=== PATIENT | female | born 1995 | race Caucasian/White ===

== ENCOUNTER → 2019-01-06 | Outpatient (CLI) | payer OTHER ==
[~2019-01-06] MED LIST: EPIN0.3P3 IM; ESCI5TAB3 PO; NORG1TAB74 PO; TRAZ50TA34 PO
== END ==
LOC: LAB 11:19
PROVIDERS: ATTEND Surgery
DX: D22.5 Melanocytic nevi of trunk (principal)
CPT/HCPCS: 88305

== ENCOUNTER → 2019-04-10 | Outpatient (CLI) | payer OTHER ==
[~2019-04-10] MED LIST changes: +CIPR-345 PO; -TRAZ50TA34 PO; +TRAZ50TA52 PO
== END ==
LOC: LAB 13:01
PROVIDERS: ATTEND Emergency Medicine
DX: R30.0 Dysuria (principal)
CPT/HCPCS: 81001

== ENCOUNTER → 2019-04-18 | Outpatient (CLI) | payer OTHER ==
[~2019-04-18] MED LIST changes: +ERYT1OIN3 OS; +NITR-105 PO
== END ==
LOC: LAB 09:22
PROVIDERS: ATTEND Emergency Medicine
DX: R30.0 Dysuria (principal)
CPT/HCPCS: 87088

== ENCOUNTER → 2019-04-21 | Outpatient (CLI) | payer OTHER | LOC: LAB 08:36 | PROVIDERS: ATTEND Nurse Practitioner Primary Care | DX: N39.0 Urinary tract infection, site not specified (principal); R30.0 Dysuria; B96.89 Other specified bacterial agents as the cause of diseases classified elsewhere | CPT/HCPCS: 81001; 87088 ==

== ENCOUNTER → 2019-04-23 | Outpatient (CLI) | payer OTHER ==
[2019-04-23 11:34] LABS: PLATELET COUNT, AUTOMATED 175 K/uL (150-450)
== END ==
LOC: LAB 11:17
PROVIDERS: ATTEND Emergency Medicine
DX: N30.90 Cystitis, unspecified without hematuria (principal)
CPT/HCPCS: 36415; 82310; 82374; 82435; 82565; 82947; 84132; 84295; 84520; 85025; 86140

== ENCOUNTER → 2019-05-06 | Outpatient (CLI) | payer OTHER | LOC: LAB 12:03 | PROVIDERS: ATTEND Emergency Medicine | DX: R30.9 Painful micturition, unspecified (principal) | CPT/HCPCS: 81001; 87088 ==

== ENCOUNTER → 2019-05-14 | Outpatient (CLI) | payer OTHER ==
[~2019-05-14] MED LIST changes: +BENZ200C15 PO; +ONDA8TAB98 PO
== END ==
LOC: LAB 09:02
PROVIDERS: ATTEND Nurse Practitioner Primary Care
DX: J02.9 Acute pharyngitis, unspecified (principal)
CPT/HCPCS: 87081

== ENCOUNTER → 2019-05-30 | Outpatient (CLI) | payer OTHER ==
[~2019-05-30] MED LIST changes: +AZIT-1 PO; +CLOT15CR62 TP; +FLUC150T40 PO; +FLUT16SP19 NS; +PROM5SYR PO
== END ==
LOC: LAB 11:46
PROVIDERS: ATTEND Obstetrics & Gynecology
DX: N89.8 Other specified noninflammatory disorders of vagina (principal)
CPT/HCPCS: 87210